=== PATIENT | female | born 1990 | race Caucasian/White ===

== ENCOUNTER → 2017-10-04 15:20 | Outpatient (CLI) | payer OTHER, SELFPAY ==
--- OUTSIDE RECORDS SUMMARY | 2017-10-04 16:28 | XMS RPT_ITS ---
:1990 Author Organization OH[facility] Care Team Providers Name Role Phone JESSIE WALKER Referring Unavailable Sylvia Anderson Attending Unavailable PROBLEMS PROBLEMS DATE TYPE CONDITION / CODE ATTENDING STATUS SOURCE 10/04/2017 Unknown N39.0 - Urinary Sylvia Anderson Active [place] tract infection, Community site not Hospital specified / Repository N39.0(ICD-10) 09/03/2017 Active Pain in left NA Active [facility] foot / Main [place] M79.672(ICD-10) Repository 01/05/2017 Active Unknown / NA Active [facility] UNK(Unknown) [place] Repository PROCEDURES PROCEDURES No Procedure Records FoundRESULTS RESULTS PROGRESS Observed: 09/03/2017 Status: COMPLETED Source: [place] 10:48 AM [facility] [place] REPOSITORY HNO ID: [id number]: Jessie WalkerService: (none)Author Type: Nurse PractitionerType: Progress NotesFiled: 09/03/2017 10:54 AMNote Text:SubjectiveHPIPt presents with c/o left foot and 4th toe pain x 12 hours.States walked into wood trim while getting up during the night.+swelling and bruising.Has not applied ice/heat. Has not taken any OTC medications.Gait slightly altered.Sensory intact.Review of SystemsConstitutional: Negative for chills and fever.Musculoskeletal: Positive for joint pain.ObjectivePhysical ExamConstitutional: She is oriented to person, place, and time andwell-developed, well-nourished, and in no distress. No distress.Musculoskeletal: Left foot: There is tenderness, bony tenderness and swelling. Thereis normal range of motion, normal capillary refill, no crepitus, nodeformity and no laceration. Feet:Full active ROM against resistance.Mild edema and ecchymosis to area noted.Cap refill 2 sec.Pedal pulses 2+.Mildly altered gait.Neurological: She is alert and oriented to person, place , and time.Skin: Skin is warm and dry. She is not diaphoretic.BP 122/80 Pulse 76 Temp 36.6 ?C (97.9 ?F) (Tympanic) Resp 18 Wt 88.9 kg (196 lb) BMI 36.43 kg/m?.Patient presents with:Foot Trauma: left foot AND toes injury, ran foot into woodwork last pmPAST MEDICAL HISTORYDiagnosis Date- Anemia, unspecified AGE 12- Anxiety- Contact dermatitis and other eczema, due to unspecified cause- Dysthymic disorder Depression (non-psychotic)- Esophageal reflux- Lactose intolerance in adult- Neoplasm of uncertain behavior of skin of thigh 04/2013 benign hemangioma right thigh- Varicella without mention of complication age 2 yearsPAST SURGICAL HISTORYProcedure Laterality Date- COLONOSCOP W/ OR W/O BRSH SPEC 10/26/15 Colonoscopy mac- EGD 02/13/2007- EGD W/O OR W/BRUSH/WASH 10/26/15 EGD mac- PAST SURGICAL HISTORY OF c-sectionALLERGIES Environmental [Other]MEDICATIONSsulfamethoxazole/trimethoprim (BACTRIM ORAL) Take by mouth. For utiLactobacillus acidophilus (PROBIOTIC ACIDOPHILUS ORAL) Take by mouth.CRANBERRY FRUIT EXTRACT (CRANBERRY CONCENTRATE ORAL) Take by mouth.diclofenac potassium (CATAFLAM) 50 mg tablet Take 1 tablet by mouth threetimes daily for 7 days. Take with food.omeprazole (PRILOSEC) 20 mg capsule Take 1 capsule by mouth once daily.Drospirenone-Ethinyl Estradiol (KEVIN, 28,) 3-0.02 mg per tablet Take 1tablet by mouth once daily.busPIRone (BUSPAR) 5 mg tablet Take 1 tablet by mouth three times daily.FAMILY HISTORYProblem Relation Age of Onset- Allergies Mother- Arthritis Mother- Asthma Mother- Diabetes Maternal Grandfather- COPD Maternal Grandfather - Heart Maternal Grandfather- Hearing Loss Maternal Grandfather- Hypertension Mother- Hypertension Maternal Grandfather- Seizures Maternal Grandfather- Heart Maternal Aunt- Breast Cancer Maternal Aunt- Prostate Cancer Maternal Uncle- Stroke Maternal UncleSocial HistorySubstance Use Topics- Smoking status: Former Smoker Packs/ day: 0.50 Years: 5.00 Types: Cigarettes Quit date: 05/17/2015- Smokeless tobacco: Never Used Comment: tried Nicorette- Alcohol use Yes Comment: weekends - socialASSESSMENT/PLAN:1. Foot pain, left - ICD9: 729.5, ICD10: M79.672 (primary diagnosis)- XR FOOT GENERAL 3V AP/LAT/OBL LTFourth toe proximal phalanx fracturePost op shoe applied.Encouraged ice, elevation prn.- DICLOFENAC POTASSIUM 50 MG TABLET2. Closed fracture of phalanx of left fourth toe, initial encounter -ICD9: 826.0, ICD10: S92.502A- CONSULT TO PODIATRYPSR assisting in scheduling this f/u.The patient is instructed to return or seek emergency treatment ifsymptoms become worse or with any acute change in condition.The patient verbalizes understanding and is in agreement with plan ofcare.Jessie Walker CNP XR FOOT 3V AP/LAT/OBL Observed: 09/03/2017 Status: F Source: [facility] 10:21 AM [facility] REPOSITORY * * *Final Report* * *DATE OF EXAM: Sep 03 2017 10:21AM WOX [id number] - XR FOOT 3V AP/LAT/OBL LT / REASON: Pain in left foot * * * * Physician Interpretation * * * * Left footHISTORY: 26 years oldClinical information: Pain in left footpt states got up last night and stubbed left foot on wood work, pain in 4th toe and distal 4th MTTECHNIQUE:Images: XR FOOT 3V AP/LAT/OBL LTComparison: None.RESULT:Findings:There is an oblique slightly displaced fracture of the fourth toe proximal phalanx shaft. Joint spaces are maintained.IMPRESSION:Fourth toe proximal phalanx fracture.Play Reader: PSCB Transcribe Date/Time: Sep 03 2017 10:25ADictated by : MIKE PRECIADO MDThis examination was interpreted and the report reviewed and electronically signed by: MIKE PRECIADO MD on Sep 03 2017 10:27AM [id number] PROGRESS Observed: 09/03/2017 Status: COMPLETED Source: [place] 10:12 AM [facility] REPOSITORY HNO ID: [id number]: Marium Armendariz (Rt) Elma Watson: (none)Author Type: TechnicianType: Progress NotesFiled: 09/03/2017 10:21 AMNote Text: Radiology Service Progress NotePATIENT NAME: Nava AguilarMRN: [id number] OF SERVICE: September 03, 2017TIME: 10:12 AMPATIENT IDENTITY VERIFICATION COMPLETED USING TWO (2) METHODS: Patientconfirmed name verbally and Date of .PATIENT GENDER DATA: Female. status: : NoBreastfeeding status: NO.PATIENT RELEVANT IMPLANT DATA REVIEWED: Not ApplicableRADIOLOGY DEPARTMENT: General X- ray: Exam(s) Completed: Lower ExtremityX-Ray(s): Foot, Left:PERIPHERAL IV DATA: Not applicableSIGNED BY: Randall Epperson 2017 10:12 AM CNOV Observed: 09/03/2017 Status: COMPLETED Source: [place] 9:45 AM [facility] REPOSITORY Office Visit (WSTR) ---------NAVA AGUILAR ([id number]) 1990 FDate Time Provider Department09/03/17 9:45 AM JESSIE WALKER [facility] During your visit today, we recorded the following information about you: Temperature Pulse Respiration Blood pressure 97.9 degrees 76/minute 18/minute 122/80 Weight 88.9 kgJessie Walker APRN.CNP 09/03/2017 10:39 AM SignedFRACTURESGENERAL INFORMATION:A fracture is a break in a bone. The length of time the cast will be ondepends on how much time is needed for the bone to heal. Sometimes a temporarysplint is placed to allow the swelling to come down. If this is the case, youmust follow up to have the actual cast applied.INSTRUCTIONS:1. To minimize swelling, keep the injured limb above the level of your heart asmuch as possible.2. Apply ice to the injury for 15 minutes each hour for the first two days.Put the ice in a plastic bag and place a thin towel between the bag of ice andyour cast.3. Keep your cast or splint dry. It can be protected during bathing with aplastic bag. If a fiberglass cast gets a little wet, it can be dried with ahair dryer.4. Do not put pressure on any part of your cast or splint as it may break.5. Plaster or fiberglass cast:Do not try to scratch the skin under the cast using a sharp or pointed object.Check the skin around the cast every day. You may put lotion on any red orsore area.Plaster splint:Wear the splint until you are seen in follow-up.If your fingers or toes become numb or tingle, you may loosen the elasticaround your splint.If you broke your toe, it has been taped to the toe next to it. After bathingyou may place a small piece of cotton between the toes and retape them.6. You may take ibuprofen, acetaminophen, or other prescribed pain medicationas needed.7. If you have been instructed to use crutches, do not bear weight and usecrutches until the orthopedist tells you to stop.8. If you are a woman who is post-menopausal or a man greater than 50 yearsold, contact your Primary Care Physician about having a bone density test.CONTACT YOUR DOCTOR OR RETURN TO THE ED IF:1. Your cast gets damaged or breaks.2. You have continued severe pain or more swelling than you did before the castwas placed.3. Your skin or nails turn blue, montalvo, or feel cold or numb.4. There is a bad smell or discharge coming from under the cast.Jessie Walker APRN.[employer]ES [employer] SERVICE ASSOCIATE 09/03/2017 10:54 AM SignedSubjectiveHPIPt presents with c/o left foot and 4th toe pain x 12 hours.States walked into wood trim while getting up during the night.+swelling and bruising.Has not applied ice/heat. Has not taken any OTC medications.Gait slightly altered.Sensory intact.Review of SystemsConstitutional: Negative for chills and fever.Musculoskeletal: Positive for joint pain.ObjectivePhysical ExamConstitutional: She is oriented to person, place, and time and well-developed,well-nourished, and in no distress. No distress.Musculoskeletal : Left foot: There is tenderness, bony tenderness and swelling. There isnormal range of motion, normal capillary refill, no crepitus, no deformity andno laceration. Feet:Full active ROM against resistance.Mild edema and ecchymosis to area noted.Cap refill 2 sec.Pedal pulses 2+.Mildly altered gait.Neurological: She is alert and oriented to person, place, and time.Skin: Skin is warm and dry. She is not diaphoretic.BP 122/80 Pulse 76 Temp 36.6 ?C (97.9 ?F) ( Tympanic) Resp 18 Wt88.9 kg (196 lb) BMI 36.43 kg/m?.Patient presents with:Foot Trauma: left foot AND toes injury, ran foot into woodwork last pmPAST MEDICAL HISTORYDiagnosis Date- Anemia, unspecified AGE 12- Anxiety- Contact dermatitis and other eczema, due to unspecified cause- Dysthymic disorder Depression (non-psychotic)- Esophageal reflux- Lactose intolerance in adult- Neoplasm of uncertain behavior of skin of thigh 04/2013 benign hemangioma right thigh- Varicella without mention of complication age 2 yearsPAST SURGICAL HISTORYProcedure Laterality Date- COLONOSCOP W/ OR W/O [facility] SPEC 10/26/15 Colonoscopy mac- EGD 02/13/2007- EGD W/O OR W/BRUSH/WASH EGD mac- PAST SURGICAL HISTORY OF c-sectionALLERGIES Environmental [Other]MEDICATIONSsulfamethoxazole/trimethoprim (BACTRIM ORAL) Take by mouth. For utiLactobacillus acidophilus (PROBIOTIC ACIDOPHILUS ORAL) Take by mouth.CRANBERRY FRUIT EXTRACT (CRANBERRY CONCENTRATE ORAL) Take by mouth.diclofenac potassium (CATAFLAM) 50 mg tablet Take 1 tablet by mouth three timesdaily for 7 days. Take with food.omeprazole (PRILOSEC) 20 mg capsule Take 1 capsule by mouth once daily.Drospirenone-Ethinyl Estradiol (KEVIN, Jenny,) 3-0.02 mg per tablet Take 1 tabletby mouth once daily.busPIRone (BUSPAR) 5 mg tablet Take 1 tablet by mouth three times daily.FAMILY HISTORYProblem Relation Age of Onset- Allergies Mother- Arthritis Mother- Asthma Mother- Diabetes Maternal Grandfather- COPD Maternal Grandfather- Heart Maternal Grandfather- Hearing Loss Maternal Grandfather- Hypertension Mother- Hypertension Maternal Grandfather- Seizures Maternal Grandfather- Heart Maternal Aunt- Breast Cancer Maternal Aunt- Prostate Cancer Maternal Uncle- Stroke Maternal UncleSocial HistorySubstance Use Topics- Smoking status: Former Smoker Packs/ day: 0.50 Years: 5.00 Types: Cigarettes Quit date: 05/17/2015- Smokeless tobacco: Never Used Comment: tried Nicorette- Alcohol use Yes Comment: weekends - socialASSESSMENT/PLAN:1. Foot pain, left - ICD9: 729.5, ICD10: M79.672 (primary diagnosis)- XR FOOT GENERAL 3V AP/LAT/OBL LTFourth toe proximal phalanx fracturePost op shoe applied.Encouraged ice, elevation prn.- DICLOFENAC POTASSIUM 50 MG TABLET2. Closed fracture of phalanx of left fourth toe, initial encounter - ICD9:826.0, ICD10: S92.502A- CONSULT TO PODIATRYPSR assisting in scheduling this f/u.The patient is instructed to return or seek emergency treatment if symptomsbecome worse or with any acute change in condition.The patient verbalizes understanding and is in agreement with plan of care.Jessie Walker CNPReferring Provider: SELF [[id number]]Allergies As of Date: 09/03/2017 Noted Allergy Reactionenvironmental [Other] 2006 Comments: seasonal allergiesDate Reviewed: 09/03/2017Reviewed by: Megha Nuno LPN - Fully AssessedReason for Visit: Foot Trauma [766] Cmt : left foot AND toes injury, ran foot into woodwork last pmPrimary Visit Diagnosis:Foot pain, left [M79.672] Other Visit Diagnosis:Closed fracture of phalanx of left fourth toe, initial encounter [S92.502A]Order(s):XR FOOT GENERAL 3V AP/LAT/OBL LT [ [id number]] Order #: [id number] FUTURE diclofenac potassium (CATAFLAM) 50 mg tabletTake 1 tablet by mouth three times daily for 7 days. Take with food.Disp: 21 tabletRfl: 0 CONSULT TO PODIATRY [9034] Order #: [id number]: 1Prescriptions as of 09/03/2017 Sig: BACTRIM ORAL Take by mouth. For uti PROBIOTIC ACIDOPHILUS ORAL Take by mouth. CRANBERRY CONCENTRATE ORAL Take by mouth. DICLOFENAC POTASSIUM 50 MG TA* Take 1 tablet by mouth three * OMEPRAZOLE 20 MG CAPSULE,SANTIAGO* Take 1 capsule by mouth once * Patient not taking: Reported on 08/21/2017 DROSPIRENONE-ETHINYL ESTRADIO* Take 1 tablet by mouth once d* BUSPIRONE 5 MG TABLET Take 1 tablet by mouth three *Problem List As Of Date 09/03/2017 Noted Resolved ESOPHAGEAL REFLUX [K21.9] INVALID FOR* Neoplasm of uncertain behavior of skin of thigh*INVALID FOR* More... Tobacco abuse disorder [Z72.0] INVALID FOR* More... Anxiety neurosis [F41.1] INVALID FOR* Nausea [R11.0] INVALID FOR*10/25 Anal bleeding [K62.5] INVALID FOR*10/26/2015 Other instructions from your clinician: FRACTURES GENERAL INFORMATION: A fracture is a break in a bone. The length of time the cast will be on depends on how much time is needed for the bone to heal. Sometimes a temporary splint is placed to allow the swelling to come down. If this is the case, you must follow up to have the actual cast applied. INSTRUCTIONS: 1. To minimize swelling, keep the injured limb above the level of your heart as much as possible. 2. Apply ice to the injury for 15 minutes each hour for the first two days. Put the ice in a plastic bag and place a thin towel between the bag of ice and your cast. 3. Keep your cast or splint dry. It can be protected during bathing with a plastic bag. If a fiberglass cast gets a little wet, it can be dried with a department chair. 4. Do not put pressure on any part of your cast or splint as it may break. 5. Plaster or fiberglass cast: Do not try to scratch the skin under the cast using a sharp or pointed object. Check the skin around the cast every day. You may put lotion on any red or sore area. Plaster splint: Wear the splint until you are seen in follow- up. If your fingers or toes become numb or tingle, you may loosen the elastic around your splint. If you broke your toe, it has been taped to the toe next to it. After bathing you may place a small piece of cotton between the toes and retape them. 6. You may take ibuprofen, acetaminophen, or other prescribed pain medication as needed. 7. If you have been instructed to use crutches, do not bear weight and use crutches until the orthopedist tells you to stop. 8. If you are a woman who is post-menopausal or a man greater than 50 years old, contact your Primary Care Physician about having a bone density test. CONTACT YOUR DOCTOR OR RETURN TO THE ED IF: 1. Your cast gets damaged or breaks. 2. You have continued severe pain or more swelling than you did before the cast was placed. 3. Your skin or nails turn blue, montalvo, or feel cold or numb. 4. There is a bad smell or discharge coming from under the cast.Prescriptions ordered this encounter Disp Refills Start End DICLOFENAC POTASSIUM 50 MG TABLET 21 t* 0 09/03/2017 09/10/2017 Route: ORAL Sig: Take 1 tablet by mouth three times daily for 7 days. Take with food. Status:Closed by JESSIE WALKER CNP on 09/03/17 PROGRESS Observed: 08/21/2017 Status: COMPLETED Source: [place] 8:34 PM [facility] REPOSITORY HNO ID: [id number]: Zoila Sellers) AthyService: (none) Author Type: Physician AssistantType: Progress NotesFiled: 08/21/2017 8:37 PMNote Text:SubjectiveHPIPt presents with urinary frequency and burning x 2 days. No hematuria. LMPwas about a month ago she is almost due for it now. No back pain. Novomiting. She denies fever or chills. No vaginal discharge or drainage. Nonew sexual partners.Review of SystemsConstitutional: Negative for chills and fever.HENT: Negative.Eyes: Negative.Respiratory: Negative.Cardiovascular: Negative.Gastrointestinal: Negative.Genitourinary: Positive for dysuria, frequency and urgency. Negative forflank pain and hematuria.Musculoskeletal: Negative.Skin: Negative.All other systems reviewed and are negative.PAST MEDICAL HISTORYDiagnosis Date- Anemia, unspecified AGE 12- Anxiety- Contact dermatitis and other eczema , due to unspecified cause- Dysthymic disorder Depression (non-psychotic)- Esophageal reflux- Lactose intolerance in adult- Neoplasm of uncertain behavior of skin of thigh 04/2013 benign hemangioma right thigh- Varicella without mention of complication age 2 yearsCurrent Outpatient Prescriptions:Lactobacillus acidophilus (PROBIOTIC ACIDOPHILUS ORAL) Take by mouth.Disp: Rfl:CRANBERRY FRUIT EXTRACT (CRANBERRY CONCENTRATE ORAL) Take by mouth. Disp: Rfl:omeprazole (PRILOSEC) 20 mg capsule Take 1 capsule by mouth once daily.(Patient not taking: Reported on 08/21/2017) Disp : 90 capsule Rfl: 2Drospirenone-Ethinyl Estradiol (KEVIN, Jenny,) 3-0.02 mg per tablet Take 1tablet by mouth once daily. Disp: Rfl:busPIRone (BUSPAR) 5 mg tablet Take 1 tablet by mouth three times daily.Disp: 90 tablet Rfl: 2No current facility- administered medications for this visit.PAST SURGICAL HISTORYProcedure Laterality Date- COLONOSCOP W/ OR W/O [facility] SPEC 10/26/15 Colonoscopy mac- EGD 02/13/2007- EGD W/O OR W/BRUSH/WASH 10/26/15 EGD mac- PAST SURGICAL HISTORY OF c- sectionFAMILY HISTORYProblem Relation Age of Onset- Allergies Mother- Arthritis Mother- Asthma Mother- Diabetes Maternal Grandfather- COPD Maternal Grandfather- Heart Maternal Grandfather- Hearing Loss Maternal Grandfather- Hypertension Mother- Hypertension Maternal Grandfather- Seizures Maternal Grandfather- Heart Maternal Aunt- Breast Cancer Maternal Aunt- Prostate Cancer Maternal Uncle- Stroke Maternal UncleSocial HistorySubstance Use Topics- Smoking status: Former Smoker Packs/day: 0.50 Years: 5.00 Types: Cigarettes Quit date: 05/17/2015- Smokeless tobacco: Never Used Comment: tried Nicorette- Alcohol use Yes Comment: weekends - socialBP 142/ 86 Pulse 64 Temp 36.7 ?C (98 ?F) (Tympanic) Resp 16 Wt88.3 kg (194 lb 9.6 oz) BMI 36.17 kg/m?ObjectivePhysical ExamConstitutional: She is oriented to person, place, and time andwell-developed, well-nourished, and in no distress.HENT:Head : Normocephalic and atraumatic.Cardiovascular: Normal rate, regular rhythm and normal heart sounds.Pulmonary/Chest: Effort normal and breath sounds normal.Musculoskeletal:No CVA tendernessNeurological: She is alert and oriented to person, place, and time.Skin: Skin is warm and dry. No rash noted.Psychiatric: Affect and judgment normal.Nursing note and vitals reviewed. ASSESSMENT/PLAN:1. Burning with urination - ICD9: 788.1, ICD10: R30.0 (primary diagnosis)acute- UA positive for trace blood, no leuks , neg nitrites.- Send urine for culture- will call pt and start antibiotic if bacteriapresent.Discussed increasing fluids over the next few days and may continue thecranberry supplement.- Discussed with patient concerning symptoms to go to the emergencydepartment or follow up here. Pt agreeable with this plan.- UA DIP B/O- URINE CULTURE2. Urinary frequency - ICD9: 788.41, ICD10: R35.0Zoila Patterson PA-C Observed: 08/21/2017 Status: F Source: [place] URINE CULTURE 8:31 PM [facility] REPOSITORY Sp. Request/Comment: - Specimen received in preservativeCulture Result - 50,000 - <100,000 CFU/ml Escherichia coli --> ABNORMAL ALERTORGANISM: Escherichia coliMETHOD: Minimum inhibitory concentration(Vitek)Antibiotic Interp JOANNA StatusAmpicillin SUSCEPTIBLE 4 FGentamicin SUSCEPTIBLE <=1 FTrimeth sulfameth SUSCEPTIBLE <=20 FCefazolin SUSCEPTIBLE <=4 FCLSI breakpoints for therapy of uncomplicated UTI's due to E.coli, K.pneumoniae, and P.mirabilis were applied and may be used to predict the activity of oral agents(cefaclor, cefdinir, cefpodoxime, cefprozil, cefuroxime, cephalexin, loracarbef).Ciprofloxacin SUSCEPTIBLE <=0.25 FNitrofurantoin SUSCEPTIBLE 32 FCefepime SUSCEPTIBLE <=1 FPiperacillin/Tazobac SUSCEPTIBLE <=4 FAmpicillin Sulbact SUSCEPTIBLE <=2 FCeftriaxone SUSCEPTIBLE <=1 FMeropenem SUSCEPTIBLE <=0.25 FErtapenem SUSCEPTIBLE <=0.5 F Performed By: #### URCUL ####[facility] [address], [place] [phone] CNOV Observed: 08/21/2017 Status: COMPLETED Source: [place] 8:30 PM [facility] REPOSITORY Office Visit ([facility]STR) ---------NAVA AGUILAR ([id number]) 1990 FDate Time Provider Department08/21/17 8:30 PM ZOILA PATTERSON (BEREKET) [facility] During your visit today, we recorded the following information about you: Temperature Pulse Respiration Blood pressure 98 degrees 64/minute 16/minute 142/86 Weight 88.3 kgZoila Patterson PA-C 08/21/2017 8:37 PM SignedSubjectiveHPIPt presents with urinary frequency and burning x 2 days. No hematuria. LMP wasabout a month ago she is almost due for it now. No back pain. No vomiting. Shedenies fever or chills. No vaginal discharge or drainage. No new sexualpartners.Review of SystemsConstitutional: Negative for chills and fever.HENT: Negative.Eyes: Negative.Respiratory: Negative.Cardiovascular: Negative.Gastrointestinal: Negative.Genitourinary: Positive for dysuria, frequency and urgency. Negative for flankpain and hematuria.Musculoskeletal: Negative.Skin: Negative.All other systems reviewed and are negative.PAST MEDICAL HISTORYDiagnosis Date- Anemia, unspecified AGE 12- Anxiety- Contact dermatitis and other eczema , due to unspecified cause- Dysthymic disorder Depression (non-psychotic)- Esophageal reflux- Lactose intolerance in adult- Neoplasm of uncertain behavior of skin of thigh 04/2013 benign hemangioma right thigh- Varicella without mention of complication age 2 yearsCurrent Outpatient Prescriptions:Lactobacillus acidophilus (PROBIOTIC ACIDOPHILUS ORAL) Take by mouth. Disp:Rfl:CRANBERRY FRUIT EXTRACT (CRANBERRY CONCENTRATE ORAL) Take by mouth. Disp:Rfl:omeprazole (PRILOSEC) 20 mg capsule Take 1 capsule by mouth once daily.(Patient not taking: Reported on 08/21/2017) Disp: 90 capsule Rfl: 2Drospirenone-Ethinyl Estradiol (KEVIN, Jenny,) 3-0.02 mg per tablet Take 1 tabletby mouth once daily. Disp: Rfl:busPIRone (BUSPAR) 5 mg tablet Take 1 tablet by mouth three times daily. Disp:90 tablet Rfl: 2No current facility-administered medications for this visit.PAST SURGICAL HISTORYProcedure Laterality Date- COLONOSCOP W/ OR W/O [facility] SPEC 10/26/15 Colonoscopy mac- EGD 02/13/2007- EGD W/O OR W/BRUSH/WASH 10/26/15 EGD mac- PAST SURGICAL HISTORY OF c- sectionFAMILY HISTORYProblem Relation Age of Onset- Allergies Mother- Arthritis Mother- Asthma Mother- Diabetes Maternal Grandfather- COPD Maternal Grandfather- Heart Maternal Grandfather- Hearing Loss Maternal Grandfather- Hypertension Mother- Hypertension Maternal Grandfather- Seizures Maternal Grandfather- Heart Maternal Aunt- Breast Cancer Maternal Aunt- Prostate Cancer Maternal Uncle- Stroke Maternal UncleSocial HistorySubstance Use Topics- Smoking status: Former Smoker Packs/ day: 0.50 Years: 5.00 Types: Cigarettes Quit date: 05/17/2015- Smokeless tobacco: Never Used Comment: tried Nicorette- Alcohol use Yes Comment: weekends - socialBP 142/86 Pulse 64 Temp 36.7 ?C (89 ?F) (Tympanic) Resp 16 Wt 88.3kg (194 lb 9.6 oz) BMI 36.17 kg/m?ObjectivePhysical ExamConstitutional: She is oriented to person, place, and time and well-developed,well-nourished, and in no distress.HENT:Head: Normocephalic and atraumatic.Cardiovascular: Normal rate, regular rhythm and normal heart sounds.Pulmonary/Chest: Effort normal and breath sounds normal.Musculoskeletal:No CVA tendernessNeurological: She is alert and oriented to person, place, and time.Skin: Skin is warm and dry. No rash noted.Psychiatric: Affect and judgment normal.Nursing note and vitals reviewed. ASSESSMENT/PLAN:1. Burning with urination - ICD9: 788.1, ICD10: R30.0 (primary diagnosis)acute- UA positive for trace blood, no leuks , neg nitrites.- Send urine for culture- will call pt and start antibiotic if bacteriapresent.Discussed increasing fluids over the next few days and may continue thecranberry supplement.- Discussed with patient concerning symptoms to go to the emergency departmentor follow up here. Pt agreeable with this plan.- UA DIP B/O- URINE CULTURE2. Urinary frequency - ICD9: 788.41, ICD10: R35.0BEREKET Haywood-CReferring Provider: SELF [200]Allergies As of Date: 08/21/2017 Noted Allergy Reactionenvironmental [Other] 2006 Comments: seasonal allergiesDate Reviewed: 08/21/2017Reviewed by: Annalsia Cordova LPN - Fully AssessedReason for Visit: burning and frequency with urination [Other] Cmt: x 2 daysPrimary Visit Diagnosis:Burning with urination [R30.0] Other Visit Diagnosis:Urinary frequency [R35.0]Order(s):UA DIP B/O [[id number]] Order #: [id number] URINE CULTURE [SQURCUL] Order # : [id number] as of 08/21/2017 Sig: PROBIOTIC ACIDOPHILUS ORAL Take by mouth. CRANBERRY CONCENTRATE ORAL Take by mouth. OMEPRAZOLE 20 MG CAPSULE, SANTIAGO* Take 1 capsule by mouth once * Patient not taking: Reported on 08/21/2017 DROSPIRENONE-ETHINYL ESTRADIO* Take 1 tablet by mouth once d* BUSPIRONE 5 MG TABLET Take 1 tablet by mouth three *Problem List As Of Date 08/21/2017 Noted Resolved ESOPHAGEAL REFLUX [K21.9] INVALID FOR* Neoplasm of uncertain behavior of skin of thigh*INVALID FOR* More... Tobacco abuse disorder [Z72.0] INVALID FOR* More... Anxiety neurosis [F41.1] INVALID FOR* Nausea [R11.0] INVALID FOR*10/26/2015 Anal bleeding [K62.5] INVALID FOR*10/26/2015Encounter Number: [id number] Status:Closed by ZOILA PATTERSON PA-C on 08/21/17 PROGRESS Observed: 01/05/2017 Status: COMPLETED Source: [place] 1:07 PM [facility] REPOSITORY HNO ID: [id number]: Pacheco Almodovarice: (none) Author Type: PhysicianType: Progress NotesFiled: 01/09/2017 9:25 AMNote Text:Patient presents with:cough and chest congestion: x 2-3 weeks-not getting better but gettingworseHPI:Coughing for 2-3 weeks. Initially without any other symptoms,progressively worsening.Positive symptoms: Cough, Shortness of breath , Chest tightness, NasalCongestion, Rhinorrhea,Negative symptoms: Sinus pressure, Fever , Chills,OTC: Mucinex, DayquilSon had strep last week, has URI.PAST MEDICAL HISTORYDiagnosis Date- Anemia, unspecified AGE 12- Anxiety- Contact dermatitis and other eczema, due to unspecified cause- Dysthymic disorder Depression (non-psychotic)- Esophageal reflux- Lactose intolerance in adult- Neoplasm of uncertain behavior of skin of thigh 04/2013 benign hemangioma right thigh- Varicella without mention of complication age 2 yearsMEDICATIONS:Current Outpatient Prescriptions:omeprazole (PRILOSEC) 20 mg capsule Take 1 capsule by mouth once daily.CRANBERRY FRUIT EXTRACT (CRANBERRY CONCENTRATE ORAL) Take by mouth.Drospirenone-Ethinyl Estradiol (KEVIN, 28,) 3-0.02 mg per tablet Take 1tablet by mouth once daily.busPIRone (BUSPAR) 5 mg tablet Take 1 tablet by mouth three times daily.No current facility-administered medications for this visit.ALLERGIES:ALLERGIESAllergen Reactions- Environmental [Othe* seasonal allergiesVITALS:BP 128/72 Pulse 72 Temp 36.9 ?C (98.5 ?F) (Tympanic) Resp 16 Wt90.6 kg (199 lb 12.8 oz) SpO2 98% BMI 37.14 kg/[id number] EXAM: GEN: mildly ill appearing HEENT: PERRL, EOMI, Throat: moist mucous membranes, mild erythema, no exudate Neck: supple, no thyromegaly, no lymphadenopathy HEART : regular rate and rhythm, no murmurs LUNGS: clear to auscultation, no wheezes or crackles, no increased WOBASSESSMENT/PLAN:1. Cough - ICD9: 786.2, ICD10: R05- AZITHROMYCIN 250 MG TABLETPacheco Philip MD CNOV Observed: 01/05/2017 Status: COMPLETED Source: [place] 1:00 PM [facility] REPOSITORY Office Visit (WSTR) ---------NAVA AGUILAR ([id number]) 1990 FDate Time Provider Pjzdoxpfiu69/11/17 1:00 PM PACHECO PHILIP [facility] During your visit today, we recorded the following information about you: Temperature Pulse Respiration Blood pressure 98.5 degrees 72/minute 16/minute 128/72 Weight 90.6 kgPacheco Philip MD 01/09/2017 9:25 AM SignedPatient presents with: cough and chest congestion: x 2-3 weeks-not getting better but getting worseHPI:Coughing for 2- 3 weeks. Initially without any other symptoms, progressivelyworsening.Positive symptoms: Cough, Shortness of breath, Chest tightness, NasalCongestion, Rhinorrhea,Negative symptoms: Sinus pressure , Fever, Chills,OTC: Mucinex, DayquilSon had strep last week, has URI.PAST MEDICAL HISTORYDiagnosis Date- Anemia, unspecified AGE 12- Anxiety- Contact dermatitis and other eczema, due to unspecified cause- Dysthymic disorder Depression (non-psychotic)- Esophageal reflux- Lactose intolerance in adult- Neoplasm of uncertain behavior of skin of thigh 04/2013 benign hemangioma right thigh- Varicella without mention of complication age 2 yearsMEDICATIONS:Current Outpatient Prescriptions:omeprazole (PRILOSEC) 20 mg capsule Take 1 capsule by mouth once daily.CRANBERRY FRUIT EXTRACT (CRANBERRY CONCENTRATE ORAL) Take by mouth.Drospirenone-Ethinyl Estradiol (KEVIN, 28,) 3- 0.02 mg per tablet Take 1 tabletby mouth once daily.busPIRone (BUSPAR) 5 mg tablet Take 1 tablet by mouth three times daily.No current facility-administered medications for this visit.ALLERGIES: ALLERGIESAllergen Reactions- Environmental [Othe* seasonal allergiesVITALS:BP 128/72 Pulse 72 Temp 36.9 ?C (98.5 ?F) (Tympanic) Resp 16 Wt 90.6 kg(199 lb 12.8 oz) SpO2 98% BMI 37.14 kg /[id number] EXAM: GEN: mildly ill appearing HEENT: PERRL, EOMI, Throat: moist mucous membranes, mild erythema, no exudate Neck: supple, no thyromegaly, no lymphadenopathy HEART: regular rate and rhythm, no murmurs LUNGS: clear to auscultation, no wheezes or crackles, no increased WOBASSESSMENT/PLAN:1. Cough - ICD9: 786.2, ICD10: R05- AZITHROMYCIN 250 MG TABLETBebeto Rhodes Provider: SELF [200]Allergies As of Date: 01/05/2017 Noted Allergy Reactionenvironmental [Other] 2006 Comments: seasonal allergiesDate Reviewed: 2016Reviewed by: Annalisa Cordova LPN - Fully AssessedReason for Visit: cough and chest congestion [ Other] Cmt: x 2-3 weeks-not getting better but getting worsePrimary Visit Diagnosis:Cough [R05]Order(s):azithromycin (ZITHROMAX Z-HENNY) 250 mg tabletTake 2 tablets day one, then, 1 tablet daily until gone.Disp: 1 PackageRfl: 0Prescriptions as of 01/05/2017 Sig: OMEPRAZOLE 20 MG CAPSULE,SANTIAGO* Take 1 capsule by mouth once * CRANBERRY CONCENTRATE ORAL Take by mouth. AZITHROMYCIN 250 MG TABLET Take 2 tablets day one, then ,* DROSPIRENONE-ETHINYL ESTRADIO* Take 1 tablet by mouth once d* BUSPIRONE 5 MG TABLET Take 1 tablet by mouth three *Medication notes this encounter DROSPIRENONE- ETHINYL ESTRADIOL 3 MG-0.02 MG (24) TABLET >> Annalisa Cordova LPN 01/05/2017 1:02 PM &gt ;> ANNALISA CORDOVA LPN Sat Jan 05, 2017 1:02 PM Not Taking BUSPIRONE 5 MG TABLET > > Annalisa Cordvoa LPN 01/05/2017 1:02 PM >> ANNALISA CORDOVA RANDALL Sat Jan 05, 2017 1: 02 PM Not TakingProblem List As Of Date 01/05/2017 Noted Resolved ESOPHAGEAL REFLUX [K21.9] INVALID FOR* Neoplasm of uncertain behavior of skin of thigh*INVALID FOR* More... Tobacco abuse disorder [Z72.0] INVALID FOR* More... Anxiety neurosis [F41.1] INVALID FOR* Nausea [R11.0] INVALID FOR*10/26/2015 Anal bleeding [K62.5] INVALID FOR*10/26/2015Prescriptions ordered this encounter Disp Refills Start End AZITHROMYCIN 250 MG TABLET 1 Pa* 0 01/05/2017 01/10/2017 Class: Print RX Sig: Take 2 tablets day one, then, 1 tablet daily until gone. Status:Closed by PACHECO PHILIP MD on 01/09/17 ALLERGIES ALLERGIES DATE TYPE / CODE NAME / CODE REACTION SEVERITY SOURCE 2006 Miscellaneous OTHER [facility] Allergy/[id number]([facility] NOMED CT) Repository ENCOUNTERS ENCOUNTERS ADMIT/DISCHARGE ACCOUNT ADMITTING ENCOUNTER LOCATION SOURCE NUMBER CLASS 10/04/2017 [id number] [facility] ing:[facility] Repository 09/03/2017/09/04/19 [id number] Ambulatory [address] Repository 09/03/2017/09/05/[id number] Repository 08/21/2017/08/23/19 [id number] Ambulatory [address] Repository 01/05/2017/01/10/20 [id number] Ambulatory [address] Repository PAYERS PAYERS ENCOUNTER GUARANTOR PAYER SUBSCRIBER SOURCE 10/04/2017 Nava Vazquez5 [facility] [place]: [place] Insurance:AULTCAREPol [id number] Number: [facility] [id number]: [phone] [id number] Repository [phone] () Date:[id number] [address] [place] [id number]: 10/04/2017 Secondary NOT GIVENUNK [place] Insurance:SELF PAY [facility]: Effective Repository Date:2017-10-04
== END ==
PROVIDERS: Visit Provider Obstetrics & Gynecology
DX: N39.0 Urinary tract infection, site not specified (principal)
CPT/HCPCS: 87086; 87088; 87186

== ENCOUNTER → 2018-10-21 11:14 | Outpatient (CLI) | payer OTHER, SELFPAY ==
--- NOTE | 2018-10-21 11:16 | US_ITS ---
STUDY: ULTRASOUND OF THE FEMALE PELVIS - COMPLETE REASON FOR EXAM: Female, 27 years old. Menstrual irregularity, pelvic pain LMP: 09/21/2018 TECHNIQUE: Transabdominal and Transvaginal TECHNICAL QUALITY: Adequate. COMPARISON: None. FINDINGS: The uterus is retroverted and is in a midline position. The uterus measures 7.3 x 5.3 x 4.3 cm. The endometrium measures 6.5 mm in thickness, and is hyperechoic. There is no demonstrated endometrial mass. There is no demonstrated myometrial mass. I.U.D. - The patient does not have an I.U.D. The right ovary is visualized. The right ovary measures 4.9 x 5.5 x 2.9 cm. There are multiple right ovarian cysts, the largest measuring 3.0 x 3.6 x 1.9 cm. Free fluid is adjacent to the right ovary. There is normal arterial and normal venous vascularity. The left ovary is visualized. The left ovary measures 3.4 x 2.7 x 1.7 cm. There is no left ovarian cyst or ovarian mass. There is no visualized left adnexal mass or complex lesion. There is normal arterial and normal venous vascularity. There is minimal fluid in the cul-de-sac. The pre void volume of the bladder was 554 ml. Polycystic ovary disease: No. US/Pelvic (Non ) IMPRESSION: 1. The uterus is retroverted. 2. There are multiple right ovarian cysts, the largest measuring 3.0 x 3.6 x 1.9 cm. 3. Free fluid is noted adjacent to the right ovary and in the cul-de-sac. 4. Ovarian vascularity appears within normal limits. Electronically Signed: Chandana Barron MD at 17:14 EDT , Service support ,
--- NOTE | 2018-10-21 11:16 | US_ITS ---
STUDY: ULTRASOUND OF THE FEMALE PELVIS - COMPLETE REASON FOR EXAM: Female, 27 years old. Menstrual irregularity, pelvic pain LMP: 09/21/2018 TECHNIQUE: Transabdominal and Transvaginal TECHNICAL QUALITY: Adequate. COMPARISON: None. FINDINGS: The uterus is retroverted and is in a midline position. The uterus measures 7.3 x 5.3 x 4.3 cm. The endometrium measures 6.5 mm in thickness, and is hyperechoic. There is no demonstrated endometrial mass. There is no demonstrated myometrial mass. I.U.D. - The patient does not have an I.U.D. The right ovary is visualized. The right ovary measures 4.9 x 5.5 x 2.9 cm. There are multiple right ovarian cysts, the largest measuring 3.0 x 3.6 x 1.9 cm. Free fluid is adjacent to the right ovary. There is normal arterial and normal venous vascularity. The left ovary is visualized. The left ovary measures 3.4 x 2.7 x 1.7 cm. There is no left ovarian cyst or ovarian mass. There is no visualized left adnexal mass or complex lesion. There is normal arterial and normal venous vascularity. There is minimal fluid in the cul-de-sac. The pre void volume of the bladder was 554 ml. Polycystic ovary disease: No. US/Transvaginal Non- IMPRESSION: 1. The uterus is retroverted. 2. There are multiple right ovarian cysts, the largest measuring 3.0 x 3.6 x 1.9 cm. 3. Free fluid is noted adjacent to the right ovary and in the cul-de-sac. 4. Ovarian vascularity appears within normal limits. Electronically Signed: Chandana Barron MD at 17:14 EDT , Service support ,
[2019-04-28 11:00] VITALS: BMI 35.5
== END ==
PROVIDERS: Family Provider Family Medicine; PCP Family Medicine; Referring Provider Nurse Practitioner Women's Health; Visit Provider Nurse Practitioner Women's Health
DX: R10.2 Pelvic and perineal pain (principal); N92.6 Irregular menstruation, unspecified
CPT/HCPCS: 76830; 76856

== ENCOUNTER → 2019-04-28 16:35 | Outpatient (CLI) | payer OTHER, SELFPAY ==
[2019-04-28 11:00] VITALS: BMI 35.5
[2019-05-01 00:36] LABS: HPV Reflexed? NOT INDICATED
== END ==
PROVIDERS: PCP Family Medicine; Referring Provider Nurse Practitioner Women's Health; Visit Provider Nurse Practitioner Women's Health
DX: Z12.4 Encounter for screening for malignant neoplasm of cervix (principal)
CPT/HCPCS: 88175; G0145

== ENCOUNTER → 2019-05-07 09:03 | Outpatient (CLI) | payer OTHER, SELFPAY ==
[2019-04-28 11:00] VITALS: BMI 35.5
[2019-05-07 12:39] LABS: Absolute Lymphocyte Count 1.88 X10^3/uL (0.83-4.51); Absolute Neutrophil Count 4.3 X10^3/uL (2.0-7.7); Basophil# 0.03 X10^3/uL; Basophil% 0.4 % (0-1); Eosinophil# 0.13 X10^3/uL; Eosinophils% 1.9 % (0-5); Hematocrit 41.6 % (37-47); Hemoglobin 13.4 g/dL (12.0-15.0); Lymphocyte # 1.88 X10^3/ul (4.0); Lymphocyte % 28.1 % (19-41); Mean Corp Hgb Conc 32.2 g/dL (32-36); Mean Corpuscular Hgb 28.3 pg (27.0-32.0); Mean Corpuscular Volume 87.9 fL (81-99); Mean Platelet Vol. 10.8 fl (6.2-12.0); Monocyte# 0.37 X10^3/uL; Monocyte% 5.5 % (0-10); NRBC Flagged by Analyzer 0 % (0-5); Neutrophil # 4.26 X10^3/uL (2.7-7.7); Neutrophil % 63.8 % (47-70); Platelet Count 387 K/mm3 (150-450); RBC Distribution Width CV 12.4 % (11.6-14.6); Red Blood Count 4.73 M/mm3 (4.2-5.4); White Blood Count 6.7 K/mm3 (4.4-11.0)
[2019-05-07 13:20] LABS: Anion Gap 7 (5-15); BUN 17 mg/dL (7-18); BUN/Creat Ratio 20.1 RATIO (10-20); Calcium,Total 9.3 mg/dL (8.5-10.1); Chloride 106 mmol/L (98-107); Creatinine, Serum 0.85 mg/dL (0.55-1.02); EST Glomerular Filtration Rate 85 mL/min (>60); Est Glom Filt Rate - Afr Amer 103 mL/min (>60); Ferritin 14 ng/mL (8-252); Free T3 2.9 pg/mL (2.18-3.98); Glucose 73 mg/dL (74-106); Potassium 4.2 mmol/L (3.5-5.1); Sodium Level 139 mmol/L (136-145); T4 Free Direct 0.97 ng/dL (0.76-1.46); Thyroid Stim Hormone (TSH) 1.61 uIU/mL (0.358-3.74)
== END ==
PROVIDERS: PCP Family Medicine; Visit Provider Family Medicine
DX: L65.9 Nonscarring hair loss, unspecified (principal); N92.0 Excessive and frequent menstruation with regular cycle
CPT/HCPCS: 36415; 80048; 82728; 84439; 84443; 84481; 85025

== ENCOUNTER 2019-12-29 05:56 | Day surgery (SDC) | payer OTHER, SELFPAY ==
[2019-04-28 11:00] VITALS: BMI 35.5
[2019-12-29 06:20] VITALS: BP 123/65; PULSE 74; RESP 14; TEMP 36.2; O2SAT 95; BMI 34.2
[2019-12-29 06:21] LABS: Internal QC Validated? YES +Cl - CLEAR BKGD; Pregnancy, Urine Negative Negative
[2019-12-29] MEDS: Lactated Ringers 1,000 ML 100 ML IV (06:38)
--- NOTE | 2019-12-29 07:30 | PCM.HP.STD ---
Problem List (1) Urinary urgency Status: Acute (2) Chronic bladder pain Status: Acute (3) Urinary frequency Status: Acute History of Present Illness Date of Admission: 12/29/19 Chief Complaint: urinary urgency, frequency and pain bladder The patient is a 29 year old F [with refractory bladder pain. Here for cystoscopy and possible hydrodistention for further evaluation and treatment, biopsy if needed.] Past Medical History Medical History: Medical History (Last Reviewed 12/29/19 @ 07:[address] Fanta Talavera MD) Acne (Acute) L70.9 Allergies No Known Allergies Allergy (Verified 12/22/19 10:11) Home Medications: Ambulatory Orders Medication Instructions Recorded spironolactone 100 mg tablet 100 mg PO DAILY 10/15/18 levonorgestrel-ethinyl estradiol 1 tab PO QDAY #84 tab 07/14/19 0.1 mg-20 mcg tablet Cholecalciferol (VIT D3) [Vitamin 1,000 unit PO DAILY 12/22/19 D] L.acidoph,Paracasei, B.lactis 1 ea PO DAILY 12/22/19 [Probiotic] Loratadine [Claritin] 10 mg PO DAILY 12/22/19 Vitamin B Complex 1 ea PO DAILY 12/22/19 Surgical History: Surgical History (Last Reviewed 04/28/19 @ 11:00 by Jessika Pulido) S/P Z98.891 x2 S/P wisdom tooth extraction Z98.818 Smoking Status: Former smoker Tobacco Use: Non-smoker Review of Systems Constitutional: Denies: Anorexia, Chills, Fever, Night Sweats Eyes: Denies: Vision Change HEENT: Denies: Visual Changes Cardiovascular: Denies: Chest Pain, Chest Pressure Respiratory: Denies: Cough, Shortness of Breath Gastrointestinal: Denies: Abdominal Pain, Nausea, Vomiting Genitourinary: Reports: Frequency, Urgency. Denies: Dysuria, Hematuria Gynecological: Denies: Vaginal itching Musculoskeletal: Denies: Muscle pain Skin: Denies: Wounds Neurological: Denies: Seizures Endocrine: Denies: Change in Body Habitus Hematologic/ Lymphatic: Denies: Hx of blood clot VTE Information - Inpt Only VTE Present on Admission: Yes VTE Mechan Device Prophylaxis: SCD's VTE Pharm Prophylaxis ordered?: No Reason prophylaxis not ordered:: Treatment Not Indicated - Physical Exam Vitals/I&O's: Vital Signs Temp Pulse Resp BP Pulse Ox 97.2 F L 74 14 123/65 H 95 12/29/19 06:20 12/29/19 06:20 12/29/19 06:20 12/29/19 06:20 12/29/19 06:20 Oxygen Delivery Method Room Air Weight: 83.7 kg Body Mass Index (BMI) 34.2 General: Alert, Oriented x3, Cooperative, No apparent distress HEENT: Atraumatic, Normocephalic Oral: Moist Mucosa Neck: Supple, Trachea Midline Lungs: Normal air movement Cardiovascular: Regular rate, Regular Rhythm Abdomen: Soft, Non Tender, Non-Distended Extremities: No cyanosis Skin: No rashes Musculoskeletal: No Muscle Wasting Neurological: Cranial nerves II-XII grossly intact, Neuro grossly intact Psych/Mental Status: Normal Affect, Appropriate, Alert and oriented to time, place, person, mood and affect Laboratory Results 12/29/19 06:05: Urine Test Negative Current Medications Cefazolin Sodium 2 gm/ Sodium (Chloride) 110 mls @ 150 mls/hr IV PREOP ONE Stop: 12/29/19 08:03 Lactated Ringer's () 1,000 mls @ 100 mls/hr IV .Q10H CHRISTINE Last Admin: 12/29/19 06:38 Dose: 100 mls/hr Documented by: Assessment/Plan All Active Problems (Last Reviewed 04/28/19 @ 11:00 by Jessika Pulido) Urinary urgency (Acute) Chronic bladder pain (Acute) Urinary frequency (Acute) Acne (Acute) proceed with cystoscopy, possible bladder biopsy, possible hydrodistention Procedure Criteria Procedure Type: Elective COVID Risk Discussion: The surgeon/proceduralist and patient have discussed in detail the risk of exposure to and/or potential harm posed by the COVID-19 virus with having a surgery/procedure at this time versus the risk of delaying the surgery/procedure. It is not possible to know either the risk of delaying the surgery or procedure or chance of getting an infection with perfect accuracy, but a joint decision was made between the patient and the surgeon/proceduralist to proceed at this time with the scheduled surgery/procedure as indicated on the consent form.
--- NOTE | 2019-12-29 07:34 | PCM.OPRPT ---
Problem List (1) Urinary urgency Status: Acute (2) Chronic bladder pain Status: Acute (3) Urinary frequency Status: Acute Report of Operation Date of Procedure: 12/29/19 Pre-Operative Diagnosis: urinary urgency, frequency, chronic bladder pain Post-Operative Diagnosis: same Surgery/Procedure Performed:: cystoscopy, hydrodistention Description of Surgical Findings:: Positive findings include petechia, increased injection within bladder capacity of 500 cc upon first filling, stretched to 800 cc on the second Type of Anesthesia:: General Specimen's removed: None Description of Procedure: The patient is a 29-year-old female with urinary urgency and frequency, symptoms of chronic bladder pain. She presents for evaluation and management. Informed consent was obtained including a discussion of COVID-19 risk factors. She was taken to the operating room and placed on the operating room table. Anesthesia monitored the head, neck, airway, IV access and vital signs throughout the case. Once anesthesia was appropriate ministered the patient was placed into dorsal lithotomy position was prepped and draped in usual sterile fashion. A cystourethroscopy was performed through the urethra into the urinary bladder under direct visualization. The urethral mucosa and bladder mucosa were found to be in good condition with no evidence of ulceration, polyp, erythema, tumor or foreign body. The bladder was then filled to capacity and allowed to sit for 2 minutes. Upon emptying, the fluid was measured at 500 cc. Upon reentry into the urinary bladder there were multiple petechiae diffusely located throughout the bladder and diffuse significant increased injection. The process was repeated, with a capacity noted at 800 cc. This was allowed to sit for 2 minutes again and the bladder was emptied. The patient was then awakened and taken to the recovery room in good condition. There were no complications during the procedure. Grafts/Implants Used: none - Complications None - Admit VTE Documentation VTE Present on Admission: Yes VTE Mechan Device Prophylaxis: SCD's VTE Pharm Prophylaxis ordered?: No Reason prophylaxis not ordered:: Treatment Not Indicated
[2019-12-29] MEDS: Cefazolin 2 GM in 0.9% Normal Saline 100 ML IV (07:35)
[2019-12-29 08:01] VITALS: BP 115/59; BP 123/65; PULSE 55; RESP 16; TEMP 36.5; O2SAT 93
--- NOTE | 2019-12-29 08:12 | PCM.DC.URO ---
Discharge Diet: No Restrictions Discharge Activity: May not drive while taking narcotic pain medications. May resume sexual activity in: 1 week Call your doctor if you observe: Fever of 101 or Higher, Inability to urinate, Inability to have a bowel movement Allergies/Adverse Reactions: Allergies No Known Allergies Allergy (Verified 12/22/19 10:11) Medications to take at Discharge spironolactone 100 mg tablet 100 mg PO DAILY 10/15/18 levonorgestrel-ethinyl estradiol 0.1 mg-20 mcg tablet 1 tab PO QDAY #84 tab 07/14/19 Cholecalciferol (VIT D3) [Vitamin D3] 1,000 unit PO DAILY 12/22/19 L.acidoph,Paracasei, B.lactis [Probiotic] 1 ea PO DAILY 12/22/19 Loratadine [Claritin] 10 mg PO DAILY 12/22/19 Vitamin B Complex 1 ea PO DAILY 12/22/19 Cephalexin [Keflex] 500 mg PO Q12 3 Days #6 cap 12/29/19 Oxycodone HCl/Acetaminophen [Percocet 5/325] 1 tablet PO Q8H PRN PRN 2 Days #6 tablet 12/29/19 Phenazopyridine HCl [Pyridium] 200 mg PO TID PRN PRN 7 Days #30 tab 12/29/19 The following prescriptions were given: Cephalexin [Keflex] 500 mg PO Q12 3 Days #6 cap Transmission Status: Pending to [facility] Oxycodone HCl/Acetaminophen [Percocet 5/325] 1 tablet PO Q8H PRN PRN 2 Days #6 tablet PRN Reason: Pain [facility]: [facility] Phenazopyridine HCl [Pyridium] 200 mg PO TID PRN PRN 7 Days #30 tab PRN Reason: Bladder Spasms [facility] [place] [address] Primary Care Physician: Chantelle Lou MD [Primary Care Provider] - Test Results: Test results from this visit will be discussed in further detail at your follow-up appointment, if applicable. Please Follow Up With: Fanta Talavera MD When: call for appt to be seen in 3-4 weeks Proposed Discharge Date: 12/29/19
[2019-12-29 08:15] VITALS: BP 108/72; BP 123/65; PULSE 56; RESP 16; O2SAT 95
[2019-12-29 08:30] VITALS: BP 106/70; BP 123/65; PULSE 57; RESP 16; O2SAT 100
[2019-12-29 08:45] VITALS: BP 113/80; BP 123/65; PULSE 56; RESP 16; TEMP 36.7; O2SAT 100
[2019-12-29 09:20] VITALS: BP 123/65; BP 127/74; PULSE 62; RESP 16; TEMP 36.7; O2SAT 97
== END 2019-12-29 09:35 | disposition home or self-care (01) ==
LOC: SDC 05:57 → AC 05:57
PROVIDERS: Anesthesiology; PCP Family Medicine; Referring Provider Urology; Visit Provider Urology
PROC: 0TBB8ZX Excision of Bladder, Via Natural or Artificial Opening Endoscopic, Diagnostic (ICD-10-PCS; CPT 52000; principal; 2019-12-29 07:20)
DX: R39.82 Chronic bladder pain (principal); R39.15 Urgency of urination; R35.0 Frequency of micturition; Z20.828 Contact with and (suspected) exposure to other viral communicable diseases; F41.9 Anxiety disorder, unspecified; F32.9 Major depressive disorder, single episode, unspecified; Z79.899 Other long term (current) drug therapy; Z87.891 Personal history of nicotine dependence
CPT/HCPCS: 00910; 52000; 81025; 87635; C9803; J7120; J2405; U0003

== ENCOUNTER → 2020-06-28 11:36 | Outpatient (CLI) | payer OTHER, SELFPAY ==
[2020-04-28 08:59] VITALS: BMI 34.0
[2020-06-28 15:16] LABS: Absolute Lymphocyte Count 2.52 X10^3/uL (0.83-4.51); Absolute Neutrophil Count 5.8 X10^3/uL (2.0-7.7); Basophil# 0.03 X10^3/uL; Basophil% 0.3 % (0-1); Eosinophil# 0.12 X10^3/uL; Eosinophils% 1.3 % (0-5); Hematocrit 40.1 % (37-47); Hemoglobin 12.8 g/dL (12.0-15.0); Lymphocyte # 2.52 X10^3/ul (0.83-4.51); Lymphocyte % 28.3 % (19-41); Mean Corp Hgb Conc 31.9 g/dL (32-36); Mean Corpuscular Hgb 27.7 pg (27.0-32.0); Mean Corpuscular Volume 86.8 fL (81-99); Mean Platelet Vol. 10.6 fl (6.2-12.0); Monocyte# 0.43 X10^3/uL; Monocyte% 4.8 % (0-10); NRBC Flagged by Analyzer 0 % (0-5); Neutrophil # 5.78 X10^3/uL (2.7-7.7); Platelet Count 366 K/mm3 (150-450); RBC Distribution Width CV 12.3 % (11.6-14.6); RBC Distribution Width SD 39.1 fl (35.1-43.9); Red Blood Count 4.62 M/mm3 (4.2-5.4); White Blood Count 8.9 K/mm3 (4.4-11.0)
[2020-06-28 16:27] LABS: Ferritin 38 ng/mL (8-252); Iron 88 ug/dL (50-170); Iron Binding Capacity,Total 353 ug/dL (250-450); PERCENT IRON SATURATION 24.9 % (15.0-55.0)
== END ==
LOC: MTLAB 11:38
PROVIDERS: PCP Family Medicine; Referring Provider Family Medicine; Visit Provider Family Medicine
DX: D64.9 Anemia, unspecified (principal)
CPT/HCPCS: 36415; 82728; 83540; 83550; 85025

== ENCOUNTER → 2020-09-02 16:30 | Outpatient (CLI) | payer OTHER, SELFPAY ==
[2020-09-02 14:29] VITALS: BMI 34.0
== END ==
LOC: LABSPEC 16:32
PROVIDERS: PCP Family Medicine; Referring Provider Obstetrics & Gynecology; Visit Provider Obstetrics & Gynecology
DX: R30.0 Dysuria (principal); N89.8 Other specified noninflammatory disorders of vagina
CPT/HCPCS: 87070; 87086; 87088; 87205

== ENCOUNTER → 2020-12-06 12:06 | Outpatient (CLI) | payer OTHER, SELFPAY ==
--- NOTE | 2020-12-06 12:42 | US_ITS ---
STUDY: ULTRASOUND OF THE FEMALE PELVIS - COMPLETE REASON FOR EXAM: Female, 29 years old. Generalized pelvic pain LMP: 11/30/2020. TECHNIQUE: Transabdominal TECHNICAL QUALITY: Adequate. COMPARISON: None. FINDINGS: The uterus is retroverted and is in a midline position. The uterus measures 9.7 cm x 5.5 cm x 4.1 cm. Normal uterine cervix. The endometrium measures 6.4 mm in thickness, and is hyperechoic. There is no demonstrated endometrial mass. There is no demonstrated myometrial mass. I.U.D. - The patient does not have an I.U.D. The right ovary is non-visualized. The left ovary is visualized. The left ovary measures 3.6 cm x 2.9 cm x 3.6 cm. There is no left ovarian cyst or ovarian mass. There is no visualized left adnexal mass or complex lesion. There is normal arterial and normal venous vascularity. There is no fluid in the cul-de-sac. The pre void volume of the bladder was 82 ml. US/Pelvic (Non ) IMPRESSION: Normal female pelvis. Electronically Signed: Sai Self MD at 14:49 EDT , Service support ,
== END ==
PROVIDERS: PCP Family Medicine; Referring Provider Urology; Visit Provider Urology
DX: R10.2 Pelvic and perineal pain (principal)
CPT/HCPCS: 76856

== ENCOUNTER → 2021-02-09 14:10 | Outpatient (CLI) | payer OTHER, SELFPAY | PROVIDERS: PCP Family Medicine; Visit Provider Family Medicine | DX: N39.0 Urinary tract infection, site not specified (principal) | CPT/HCPCS: 87086; 87088 ==

== ENCOUNTER → 2021-06-30 | Outpatient (CLI) | payer OTHER, SELFPAY ==
--- NOTE | 2021-06-30 08:06 | US_ITS ---
STUDY: ULTRASOUND OF THE FEMALE PELVIS - COMPLETE REASON FOR EXAM: Female, 30 years old. Enlarged ovary. LMP: 06/22/2021. TECHNIQUE: Transabdominal and Transvaginal TECHNICAL QUALITY: Adequate. COMPARISON: Comparison is made with prior study dated 12/06/2020. FINDINGS: The uterus is retroverted and is in a midline position. The uterus measures 8.1 cm x 5 cm x 4.2 cm. There is a Nabothian cyst of the cervix. The endometrium measures 2.6 mm in thickness, and is hyperechoic. There is no demonstrated endometrial mass. There is no demonstrated myometrial mass. I.U.D. - The patient does not have an I.U.D. The right ovary is visualized. The right ovary measures 3.2 cm x 3.2 cm x 1.7 cm. There is no right ovarian cyst or ovarian mass. Small follicles are seen within the ovary. There is no visualized right adnexal mass or complex lesion. There is normal arterial and normal venous vascularity. The left ovary is visualized. The left ovary measures 3.7 cm x 2.5 cm x 2.2 cm. There is no left ovarian cyst or ovarian mass. Small follicles are seen within the ovary.. There is no visualized left adnexal mass or complex lesion. There is normal arterial and normal venous vascularity. There is no fluid in the cul-de-sac. The pre void volume of the bladder was 504 ml. US/Transvaginal Non- IMPRESSION: Normal female pelvis. Electronically Signed: Sai Self MD at 14:13 EDT ,
--- NOTE | 2021-06-30 08:06 | US_ITS ---
STUDY: ULTRASOUND OF THE FEMALE PELVIS - COMPLETE REASON FOR EXAM: Female, 30 years old. Enlarged ovary. LMP: 06/22/2021. TECHNIQUE: Transabdominal and Transvaginal TECHNICAL QUALITY: Adequate. COMPARISON: Comparison is made with prior study dated 12/06/2020. FINDINGS: The uterus is retroverted and is in a midline position. The uterus measures 8.1 cm x 5 cm x 4.2 cm. There is a Nabothian cyst of the cervix. The endometrium measures 2.6 mm in thickness, and is hyperechoic. There is no demonstrated endometrial mass. There is no demonstrated myometrial mass. I.U.D. - The patient does not have an I.U.D. The right ovary is visualized. The right ovary measures 3.2 cm x 3.2 cm x 1.7 cm. There is no right ovarian cyst or ovarian mass. Small follicles are seen within the ovary. There is no visualized right adnexal mass or complex lesion. There is normal arterial and normal venous vascularity. The left ovary is visualized. The left ovary measures 3.7 cm x 2.5 cm x 2.2 cm. There is no left ovarian cyst or ovarian mass. Small follicles are seen within the ovary.. There is no visualized left adnexal mass or complex lesion. There is normal arterial and normal venous vascularity. There is no fluid in the cul-de-sac. The pre void volume of the bladder was 504 ml. US/Pelvic (Non ) IMPRESSION: Normal female pelvis. Electronically Signed: Sai Self MD at 14:13 EDT ,
== END | disposition home or self-care (01) ==
PROVIDERS: PCP Family Medicine; Visit Provider Nurse Practitioner Women's Health
DX: N83.8 Other noninflammatory disorders of ovary, fallopian tube and broad ligament (principal)
CPT/HCPCS: 76830; 76856

== ENCOUNTER → 2021-09-05 | Outpatient (CLI) | payer OTHER, SELFPAY | END | disposition home or self-care (01) | PROVIDERS: PCP Family Medicine; Referring Provider Nurse Practitioner Women's Health; Visit Provider Nurse Practitioner Women's Health | DX: R35.0 Frequency of micturition (principal) | CPT/HCPCS: 87070; 87086; 87088; 87205 ==

== ENCOUNTER → 2022-03-23 | Outpatient (CLI) | payer OTHER, SELFPAY ==
[2022-03-23 12:23] LABS: Absolute Lymphocyte Count 1.74 X10^3/uL (0.83-4.51); Absolute Neutrophil Count 3.7 X10^3/uL (2.0-7.7); Basophil# 0.02 X10^3/uL; Basophil% 0.3 % (0-1); Eosinophil# 0.09 X10^3/uL; Eosinophils% 1.5 % (0-5); Hematocrit 39.6 % (37-47); Hemoglobin 12.8 g/dL (12.0-15.0); Lymphocyte # 1.74 X10^3/ul (0.83-4.51); Lymphocyte % 29.7 % (19-41); Mean Corp Hgb Conc 32.3 g/dL (32-36); Mean Corpuscular Hgb 29.2 pg (27.0-32.0); Mean Corpuscular Volume 90.2 fL (81-99); Mean Platelet Vol. 10.6 fl (6.2-12.0); Monocyte# 0.29 X10^3/uL; NRBC Flagged by Analyzer 0 % (0-5); Neutrophil # 3.69 X10^3/uL (2.7-7.7); Neutrophil % 63.2 % (47-70); Platelet Count 297 K/mm3 (150-450); RBC Distribution Width CV 12.4 % (11.6-14.6); RBC Distribution Width SD 41.1 fl (35.1-43.9); Red Blood Count 4.39 M/mm3 (4.2-5.4); White Blood Count 5.9 K/mm3 (4.4-11.0)
[2022-03-23 12:36] LABS: AST(SGOT) 14 U/L (15-37); Alanine Aminotransfer ALT/SGPT 18 U/L (13-56); Albumin, Serum 3.8 g/dL (3.2-5.0); Alkaline Phosphatase 50 U/L (45-117); Anion Gap 8 (5-15); BUN 13 mg/dL (7-18); Calcium,Total 9.2 mg/dL (8.5-10.1); Chloride 105 mmol/L (98-107); Cholesterol 166 mg/dL (200); Creatinine, Serum 0.87 mg/dL (0.55-1.02); EST Glomerular Filtration Rate 81 mL/min (>60); Est Glom Filt Rate - Afr Amer 98 mL/min (>60); Globulin 3.7 g/dL (2.2-4.2); Glucose 74 mg/dL (74-106); High Density Lipoprotein 101 mg/dL; Potassium 3.8 mmol/L (3.5-5.1); Protein, Total 7.5 g/dL (6.4-8.2); Sodium Level 138 mmol/L (136-145); Thyroid Stim Hormone (TSH) 1.47 uIU/mL (0.358-3.74); Triglycerides 78 mg/dL; Very Low Density Lipoprotein 16 mg/dL (5-40)
== END | disposition home or self-care (01) ==
LOC: BFHLAB 08:07
PROVIDERS: PCP Family Medicine; Visit Provider Family Medicine
DX: Z00.00 Encounter for general adult medical examination without abnormal findings (principal); R53.83 Other fatigue
CPT/HCPCS: 36415; 80053; 80061; 84443; 85025

== ENCOUNTER → 2022-06-25 | Outpatient (CLI) | payer OTHER, SELFPAY ==
[2022-07-01 15:07] LABS: HPV APTIMA, High Risk Negative (Negative)
== END | disposition home or self-care (01) ==
LOC: LABSPEC 11:12
PROVIDERS: PCP Family Medicine; Referring Provider Nurse Practitioner Women's Health; Visit Provider Nurse Practitioner Women's Health
DX: Z12.4 Encounter for screening for malignant neoplasm of cervix (principal)
CPT/HCPCS: 87624; 88175; G0145

== ENCOUNTER → 2023-08-12 | Outpatient (CLI) | payer OTHER, SELFPAY ==
[2023-08-12 08:46] LABS: Hemoglobin A1c 4.9 % (3.8-5.6)
[2023-08-12 09:15] LABS: Vitamin D,25 Hydroxy 41.3 ng/mL
[2023-08-12 09:19] LABS: Cholesterol 173 mg/dL (200); High Density Lipoprotein 80 mg/dL; T4 Free Direct 0.91 ng/dL (0.76-1.46); Thyroid Stim Hormone (TSH) 2.01 uIU/mL (0.358-3.74); Triglycerides 68 mg/dL; Very Low Density Lipoprotein 14 mg/dL (5-40)
[2023-08-13 04:07] LABS: Thyroid Peroxidase AB 9 IU/mL (0-34)
== END | disposition home or self-care (01) ==
LOC: LAB 07:14
PROVIDERS: PCP Family Medicine; Visit Provider Nurse Practitioner Women's Health
DX: R53.83 Other fatigue (principal); Z13.21 Encounter for screening for nutritional disorder; Z13.220 Encounter for screening for lipoid disorders; Z13.29 Encounter for screening for other suspected endocrine disorder
CPT/HCPCS: 36415; 80061; 82306; 83036; 84439; 84443; 86376